=== PATIENT | female | born 1965 | race Caucasian/White ===

== ENCOUNTER 2019-01-29 09:45 | Day surgery (SDC) | payer OTHER ==
[~2019-01-29 09:45] MED LIST: OXYACE5T PO; RXOXYACE PO
[2019-01-29 11:04] LABS: Performing Lab VERACYTE; Test Name FMA
[2019-02-12 11:20] LABS: Result SEE PATHOTH RESULTS
== END 2019-01-29 22:51 | disposition home or self-care (01) ==
LOC: US 09:45
PROVIDERS: Technician, Other
DX: E04.1 Nontoxic single thyroid nodule (principal)
CPT/HCPCS: 10005

== ENCOUNTER 2019-10-01 05:58 | Day surgery (SDC) | payer OTHER ==
[~2019-10-01] VITALS: Ht 165.1 cm; Wt 80.4 kg
[~2019-10-01 05:58] MED LIST changes: +Zocor20 MG PO
--- NOTE | 2019-10-01 06:34 | NUR ---
Ambulatory in Day Surgery History, Chart, Medications and Allergies reviewed before start of procedure.Lungs clear T/O to Auscultation. Patient confirms NPO status and agrees with scheduled surgery. Patient reports completing Chlorhexadine shower X2 prior to admission to hospital.Surgical site prepped with 2% Chlorhexidine cloth wipe.
--- NOTE | 2019-10-01 11:07 | NUR ---
10/01/19 1107 Cheng Flores LATE ENTRY: RG BLOCK DONE PRIOR TO PROCEDURE PER DR. COLLINS. TIME OUT COMPLETED.
--- NOTE | 2019-10-01 12:04 | NUR ---
POST OP: REPORT RECEIVED FROM DIRECTOR OF ACQUISITIONS. PT TO UNIT AT ABOUT 1000. UPON ASSESSMENT PT IS IN NO VISABLE DISTRESS, A/O, VSS. REPORT CRAMPING PAIN AT [facility], TOLERABLE AT THIS TIME. SCANT DRAINAGE AT JANNETTE PAD, KOWALSKI DRAINING. WILL CTM AND MED PER EMAR.
--- NOTE | 2019-10-01 19:20 | NUR ---
SUMMARY: NO ACUTE CHANGE SINCE POST OP. A/O, VSS. PT HAS AMBULATED IN ROOM AND HALLS. NAUSEA AND SOME EMESIS WITH TAKING 2 NARCOS AT THE SAME TIME. MADE VENKATESH MONAE AWARE TO PREMEDICATE WITH ZOFRAN. SCANT VAGINAL BLEED, JANNETTE PAD CHANGED X1. SURGICAL SITES WNL, SMALL AMT BRUISING AT LUQ SITE. NO SAFETY CONCERNS AT THIS TIME. REPORT GIVEN TO VENKATESH CHAVEZ RN.
--- NOTE | 2019-10-01 22:53 | NUR ---
PT HAD SOME NAUSEA AND VOMITING APPROX 2100. MEDICATED PER ORDER WITH ZOFRAN. AT 2250 PT RESTING QUIETLY IN BED WITH EYES CLOSED.
[2019-10-02 04:08] LABS: BASOPHILS ABSOLUTE AUTO 0.02 K/mm3 (0.00-0.23); BASOPHILS PERCENT AUTO 0 % (0-2); EOSINOPHILS ABSOLUTE AUTO 0.03 K/mm3 (0.00-0.68); EOSINOPHILS PERCENT AUTO 0 % (0-6); Hematocrit 39.9 % (33.0-51.0); Hemoglobin 13.4 g/dL (11.5-16.0); IMMATURE GRAN ABSOLUTE AUTO 0.02 K/mm3 (0.00-0.10); IMMATURE GRAN PERCENT AUTO 0 % (0-1); LYMPHOCYTES ABSOLUTE AUTO 1.18 K/mm3 (0.84-5.20); LYMPHOCYTES PERCENT AUTO 13 % (21-46); MONOCYTES ABSOLUTE AUTO 0.96 K/mm3 (0.16-1.47); MONOCYTES PERCENT AUTO 11 % (4-13); Mean Corpuscular HGB 28.6 pg (26.0-34.0); Mean Corpuscular HGB Conc 33.6 g/dL (31.5-36.5); Mean Corpuscular Volume 85 fL (80-100); Mean Platelet Volume 11.2 fL (9.1-12.4); NEUTROPHILS ABSOLUTE AUTO 6.69 K/mm3 (1.96-9.15); NEUTROPHILS PERCENT AUTO 75 % (41-73); Platelet Count 162 K/mm3 (150-400); RDW Coefficient Variation 12.3 % (11.7-14.2); RDW Standard Deviation 37.9 fL (35.1-46.3); Red Blood Cell Count 4.69 M/mm3 (3.80-5.20)
--- NOTE | 2019-10-02 04:13 | NUR ---
SHIFT SUMMARY PT A/O X4, TOLERATING SM AMTS PO INTAKE. IND. IN RM. PAIN MANAGED WITH PO PAIN MEDS PER ORDERS. PT HAS HAD SOME NAUSEA AND ONE EPISODE OF EMESIS THIS SHIFT AND WAS GIVEN ZOFRAN PER ORDERS. THIS SEEMED TO WORK WELL FOR HER. ASSISTED WITH ADL'S PRN.
[2019-10-02] MEDS ORDERED: ONDA4ODT PO (09:59)
[2019-10-02] MEDS ORDERED: HYDR1TAB94 PO (10:00)
[2019-10-02] MEDS ORDERED: IBUP800 PO (10:00)
[2019-10-02] MEDS ORDERED: BENADRYL25 MG PO (10:01)
--- NOTE | 2019-10-02 14:43 | NUR ---
DISCHARGE: PACKET PRINTED AND PT EDUCATED ABOUT HOME CARE AFTER DISCHARGE. GIVEN SCRIPTS. PT LEFT UNIT VIA WHEELCHAIR WITH DARRIAN GOMEZ AT ABOUT 1220
== END 2019-10-02 12:55 | disposition home or self-care (01) ==
LOC: ORSCMMR 05:58 → ORD 07:30 → SURS 09:50 → ORSCMMR 10-02 12:55
PROVIDERS: Obstetrics & Gynecology
PROC: 0UT9FZZ Resection of Uterus, Via Natural or Artificial Opening With Percutaneous Endoscopic Assistance (ICD-10-PCS; principal; 2019-10-01 07:30)
PROC: 0UT2FZZ Resection of Bilateral Ovaries, Via Natural or Artificial Opening With Percutaneous Endoscopic Assistance (ICD-10-PCS; principal; 2019-10-01 07:30)
PROC: 0UT7FZZ Resection of Bilateral Fallopian Tubes, Via Natural or Artificial Opening With Percutaneous Endoscopic Assistance (ICD-10-PCS; principal; 2019-10-01 07:30)
DX: D25.9 Leiomyoma of uterus, unspecified (principal); R10.2 Pelvic and perineal pain; N73.9 Female pelvic inflammatory disease, unspecified; E78.5 Hyperlipidemia, unspecified; Z79.899 Other long term (current) drug therapy
CPT/HCPCS: 85025; 88307; A9270-GY; C1729; J0690; J1100; J1885; J2250; J2370; J2405; J2704; J3010; J7030; J7120

== ENCOUNTER → 2019-11-14 | Outpatient (CLI) | payer OTHER ==
[~2019-11-14] MED LIST changes: +BENADRYL25 MG PO; +HYDR1TAB94 PO; +IBUP800 PO; +ONDA4ODT PO
[2019-11-14 17:03] LABS: Source, Urine Clean Catch
[2019-11-14 18:50] LABS: Bilirubin, Urine Neg (Neg); Blood, Urine 1+ (Neg); Glucose Qualitative, Urine Neg (Neg); Ketones, Urine 1+ (Neg); Leukocyte Esterase, Urine 2+ (Neg); Nitrite, Urine Neg (Neg); Protein, Urine Neg (Neg); Specific Gravity, Urine 1.025 (1.003-1.022); Urobilinogen, Urine NORM (Normal)
[2019-11-14 18:57] LABS: Appearance, Urine Clear (Clear); Color, Urine Yellow (P-Yellow)
[2019-11-14 18:58] LABS: Bacteria Few /hpf; Calcium Oxalate Crystals Few /hpf; Mucus Mod (0-Heavy); Red Blood Cells, Urine 0-2 /hpf (0-2); Squamous Epithelial Cells Few /hpf (Few)
== END | disposition home or self-care (01) ==
LOC: LAB SHORT 15:30 → LAB 15:30
PROVIDERS: Obstetrics & Gynecology
DX: R30.0 Dysuria (principal); R30.9 Painful micturition, unspecified
CPT/HCPCS: 81001; 87086